=== PATIENT | male | born 1995 | race Caucasian/White ===

== ENCOUNTER 2021-07-18 10:13 | Emergency (ER) | payer BC, SELFPAY ==
[2021-07-18 11:46] VITALS: BP 161/101; PULSE 70; RESP 16; TEMP 36.9; O2SAT 99; BMI 28.7
[2021-07-18 11:52] VITALS: BP 161/101; PULSE 70; RESP 18; TEMP 36.9
--- NOTE | 2021-07-18 12:05 | HMH.EDUTC ---
[facility] [place] Clinical Impression: Upper respiratory infection Qualifiers: URI type: unspecified viral URI Qualified Code(s): J06.9 - Acute upper respiratory infection, unspecified Disposition: Home, Self-Care Condition on Discharge: Good Instructions: Preventing the Spread of Coronavirus Discharge Instructions Additional Instructions: You have been tested for COVID19. Please isolate yourself as if you are positive until test results received. Prescriptions: Albuterol Sulfate [Albuterol Sulfate Hfa] 2 puffs IH Q4HP PRN 30 Days #1 each PRN Reason: Shortness Of Breath Transmission Status: Pending to [facility] predniSONE [Prednisone 20mg Tab] 20 mg PO BID 5 Days #10 tab Transmission Status: Pending to [facility] Promethazine/Dextromethorphan [Promethazine-Dm Syrup] 5 ml PO Q4HP PRN 10 Days #180 ml MDD 30ML/DAY PRN Reason: Cough Transmission Status: Pending to [facility] Referrals: Swathi Gallardo [Primary Care Provider] - Forms: Work/School Release Time of Disposition: 12:10 Medical Decision Making - Sandeep Inquiry Pt receiving controlled substance: No Vital Signs: 07/18/21 11:46 07/18/21 11:52 Temperature 98.4 F 98.4 F Temperature Source Oral Pulse Rate 70 Pulse Rate [Left] 70 Respiratory Rate 16 18 Blood Pressure 161/101 H Blood Pressure [Right Arm] 161/101 H Blood Pressure Mean [Right Arm] 121 02 Sat by Pulse Oximetry 99 [facility] [place] - General Stated complaint: covid test Time Seen by Provider: 07/18/21 12:05 Mode of Arrival: Ambulatory Source of Information: Patient Limitations: No Limitations Description of Symptoms (Recalled from Triage Doc. by RN): pt c/o fever, loss of taste, cough and body aches. HEENT Symptoms (Recalled from RN notes): Yes (loss of taste) Resp Symptoms (Recalled from RN notes): Yes (cough) Skin Symptoms (Recalled from RN notes): No MS Symptoms (Recalled from RN notes): No Functional Status (Recalled from RN notes): fever and body aches - History of Present Illness Provider Complaint: Fever, body aches, chills, loss of taste and smell for about a week. Headache, sore throat, cough, diarrhea. Onset (ago): week(s) (1) Location: head, chest Relieving factors: none Exacerbating factors: none Associated symptoms: cough, fever/chills, headaches, loss of appetite Treatments prior to arrival: NSAID - Related Data Previous Rx's Medication Instructions Recorded Albuterol Sulfate [Albuterol 2 puffs IH Q4HP PRN 30 Days #1 each 07/18/21 Sulfate Hfa] Promethazine/Dextromethorphan 5 ml PO Q4HP PRN 10 Days #180 ml 07/18/21 [Promethazine-Dm Syrup] MDD 30ML/DAY predniSONE [Prednisone 20mg 20 mg PO BID 5 Days #10 tab 07/18/21 Tab] Allergies Allergy/AdvReac Type Severity Reaction Status Date / Time vancomycin Allergy Verified 07/18/21 11:51 - Worker's Comp Is this a Worker's Comp case?: No H History - Hepatitis A Screen Drug use history?: No High risk sexual behaviors?: No History of sexually transmitted infection?: No Currently employed?: No Childcare worker?: No Do you have indoor plumbing?: Yes Do you have electricity?: Yes Attestation statement:: This patient has been screened for Hepatitis A risk factors. I have reviewed the patient's past medical history: Yes ROS Obtained: Yes All systems reviewed & no additional complaints - Constitutional Constitutional: Reports body ache, Reports chills, Reports fatigue, Reports fever(s), Reports malaise - ENT Ears, Nose, Mouth, and Throat: Reports otalgia, Reports headache(s), Reports nasal congestion, Reports sore throat - Respiratory Respiratory: Reports cough - Gastrointestinal Gastrointestingal: Reports: loose stools Physical Exam - General General appearance: alert, in no apparent distress - Head Head exam: normocephalic - Eye Eye exam: Present: PERRL - ENT ENT exam: Present: normal oropharynx, TM's normal bilaterally - Chest
== END 2021-07-18 12:33 | disposition home or self-care (01) ==
PROVIDERS: Emergency Provider Physician Assistant; PCP Nurse Practitioner Family
DX: U07.1 COVID-19 (principal); J06.9 Acute upper respiratory infection, unspecified
CPT/HCPCS: 99202; G0463; U0003

== ENCOUNTER 2022-08-10 02:32 | Emergency (ER) | payer BC, SELFPAY ==
[2022-08-10] VITALS (8 sets, daily range): BP systolic 98–152; BP diastolic 48–99; PULSE 47–72; RESP 16; TEMP 36.4–36.7; O2SAT 97–99; BMI 32.1
[2022-08-10 03:00] LABS: Microscopic, Urine URINE MICROSCOPIC (MICROSCOPIC)
[2022-08-10 03:03] LABS: Basophils # 0.1 K/mm3 (0-0.2); Basophils % 0.8 % (0.1-2.0); Eosinophils # 0.4 K/mm3 (0.0-0.4); Hematocrit 48.8 % (42.0-52.0); Hemoglobin 15.8 g/dL (14.1-18.0); Lymphocytes # 4.2 K/mm3 (0.7-4.5); Lymphocytes % 36.5 % (10-50); Mean Corpuscular HGB Conc 32.4 g/dL (31.8-35.4); Mean Corpuscular Hemoglobin 30.9 pg (27.0-31.2); Mean Corpuscular Volume 95.6 fl (80-94); Mean Platelet Volume 8.5 fl (7.4-10.4); Monocytes # 0.5 K/mm3 (0.1-1.0); Monocytes % 4.5 % (1.7-9.3); Neutrophils # 6.4 K/mm3 (1.8-7.8); Neutrophils % 55.1 % (37.0-80.0); Platelet Count 255 K/mm3 (142-424); Red Blood Count 5.11 M/mm3 (4.60-6.20); Red Cell Distribution Width 13.1 % (11.5-17.5); White Blood Count 11.6 K/mm3 (4.8-10.8)
[2022-08-10 03:04] LABS: Appearance,Urine CLEAR (Clear); Bilirubin,Urine Negative (Negative); Blood, Urine TRACE-I (Negative); Color,Urine YELLOW (Yellow); Glucose,Urine (UA) Negative (Negative); Ketones,Urine Negative (Negative); Leukocyte Esterase,Urine Negative (Negative); Nitrate,Urine Negative (Negative); PH,Urine 6.5 (5.0-8.5); Protein,Urine Negative (Negative); Urobilinogen,Urine 0.2 EU/dl (0.2)
[2022-08-10 03:06] LABS: Chloride 102 mmol/L (98-107); Potassium 4.1 mmoL/L (3.5-5.1); Sodium 141 mmol/L (136-145)
[2022-08-10 03:08] LABS: Blood Urea Nitrogen 13 mg/dl (9-20); Creatinine Clearance Estimated 226 mL/min (50-200); Estimated Glomerular Filt Rate 118 ml/min (>60); GFR (African American) 143 ML/MIN (>60)
[2022-08-10 03:09] LABS: Alanine Aminotransferase 34 U/L (12-78); Albumin Level 4.4 g/dl (3.5-5.0); Albumin/Globulin Ratio 1.6 (1.1-1.8); Alkaline Phosphatase 86 U/L (38-126); Anion Gap 17.1 mEq/L (5-15); Aspartate Amino Transferase 39 U/L (17-59); Calcium 9.3 mg/dl (8.4-10.2); Carbon Dioxide 26 mmol/L (22.0-30.0); Globulin 2.7 g/dL (1.3-3.2); Glucose 105 mg/dl (74-100); Total Protein,Serum 7.1 g/dl (6.3-8.2)
[2022-08-10 03:10] LABS: Bilirubin,Total < 0.1 mg/dl (0.2-1.3)
[2022-08-10 03:14] LABS: C-Reactive Protein 4.4 mg/L (0-4)
--- NOTE | 2022-08-10 03:14 | HMH.EDHA ---
Discharge Plan Disposition Chief Complaint: Headache Prescriptions Prescriptions: No Action No Known Home Medications Referrals Follow up/Referrals: Swathi Gallardo [Primary Care Provider] - See instructions Clinical Impressions Clinical Impression: Headache, Sinusitis Instructions Patient Instructions: DI for Headache Discharge ED Provider: Baldev Gonsalves Headache HPI General Chief Complaint: Headache Stated Complaint: Vomiting, Headache Time Seen by Provider: 08/10/22 03:14 Mode of Arrival: Ambulatory Source of Information: Patient, Spouse and Medical Record Limitations: No Limitations Description of Symptoms (Recalled from ER Triage Doc. by RN): Pt reports having a KEITA yesterday and then at aprox 0130 he woke up with what he describes as bands around my head . He also endorses N/V with this KEITA. He denies visual disturbances. Pt denies cough, fever, abd pain, chest pain, or diarrhea. History of Present Illness HPI Narrative: pt with some allergy sx and then dev keita with vomiting w/o rash or fever and no focal neuro sx and no trauma and no tick bites Complaint: headache Onset (ago): hour(s) Onset description: gradual Location: frontal Severity: moderate Quality: different than previous headaches Context: occurred at rest Associated symptoms: nausea and vomiting Treatments prior to arrival: none Related Data Home Medications Medication Instructions Recorded Confirmed No Known Home Medications 08/10/22 08/10/22 Allergies Allergy/AdvReac Type Severity Reaction Status Date / Time vancomycin Allergy Verified 07/18/21 11:51 [facility] History Hepatitis A Screen Attestation statement:: This patient has been screened for Hepatitis A risk factors. I have reviewed the patient's past medical history: Yes Social History Smoking Status: Current every day smoker [facility] Medical History (Updated 08/10/22 @ 06:12 by Baldev Gonsalves MD) No significant past medical history Social History Smoking Status: Current every day smoker alcohol intake: never current occupational status: employed Travel in the last 8 weeks: None ROS Obtained: Yes All systems reviewed & no additional complaints except as documented Constitutional Constitutional: Denies fever(s) and Reports headache(s) Eyes Eyes: Denies change in vision ENT Ears, Nose, Mouth, and Throat: Reports as per HPI, Denies dental pain, Denies dysphagia, Denies facial pain and Reports headache(s) Cardiovascular Cardiovascular: Denies chest pain with activity and Denies dyspnea Respiratory Respiratory: Denies dyspnea Gastrointestinal Gastrointestingal: Denies dysphagia Musculoskeletal Musculoskeletal: Denies joint stiffness Integumentary/Breasts Skin/Breast: Denies rash Neurologic Neurologic: Reports headache(s) Physical Exam General General appearance: alert Head Head exam: normocephalic Eye Eye exam: Present PERRL and EOMI ENT ENT exam: Present normal oropharynx and mucous membranes moist Neck Neck exam: Present full ROM and trachea midline; Absent meningismus or lymphadenopathy Respiratory Respiratory exam: Present normal lung sounds bilaterally Cardiovascular Cardiovascular exam: Present regular rate Abdominal Exam Abdominal exam: Present soft Extremities Exam Extremities exam: Present full ROM; Absent cyanosis Neurological Exam Neurological exam: Present alert, oriented X3, CN II-XII intact and other (gcs=15) Psychiatric Psychiatric exam: Present normal affect Skin Skin exam: Absent rash Medical Decision Making Medical Records Medical records reviewed: Yes I reviewed the patient's medical records. Sandeep Inquiry Pt receiving controlled substance: No Vital Signs: 08/10/22 02:34 Temperature 97.5 F L Temperature Source Oral Pulse Rate [Right Radial] 64 Respiratory Rate 16 Blood Pressure [Right Arm] 152/99 H Blood Pressure Mean [Right Arm] 116 Blood Pressure Source [Right Arm] Automatic Cuf
--- NOTE | 2022-08-10 03:17 | CT_ITS ---
PROCEDURE INFORMATION: Exam: CT Head Without Contrast Exam date and time: 08/10/2022 3:17 AM Age: 26 years old Clinical indication: Pain; Headache; Additional info: KEITA TECHNIQUE: Imaging protocol: Computed tomography of the head without contrast. Radiation optimization: All CT scans at this facility use at least one of these dose optimization techniques: automated exposure control; mA and/or kV adjustment per patient size (includes targeted exams where dose is matched to clinical indication); or iterative reconstruction. COMPARISON: No relevant prior studies available. FINDINGS: Brain: Normal. No hemorrhage. Unremarkable white matter. No mass effect. Cerebral ventricles: No ventriculomegaly. Paranasal sinuses: Bilateral maxillary sinus polyps or mucous retention cysts. Minimal anterior ethmoid mucosal thickening. Mastoid air cells: Visualized mastoid air cells are well aerated. Bones/joints: Unremarkable. No acute fracture. Soft tissues: Unremarkable. IMPRESSION: 1. No evidence of acute intracranial hemorrhage, mass effect, or edema. 2. Maxillary sinus polyps or mucous retention cysts with minimal anterior ethmoid mucosal thickening. The findings could contribute to headache.
--- NOTE | 2022-08-10 03:17 | CT_ITS ---
PROCEDURE INFORMATION: Exam: CT Maxillofacial Without Contrast, Sinus Exam date and time: 08/10/2022 3:19 AM Age: 26 years old Clinical indication: Pain; Headache; Additional info: KEITA TECHNIQUE: Imaging protocol: CT Maxillofacial without contrast. Focus on the sinuses. Radiation optimization: All CT scans at this facility use at least one of these dose optimization techniques: automated exposure control; mA and/or kV adjustment per patient size (includes targeted exams where dose is matched to clinical indication); or iterative reconstruction. COMPARISON: CT HEAD/BRAIN WO CON 08/10/2022 3:17 AM FINDINGS: Frontal sinuses: Normal. No air-fluid levels. Ethmoid sinuses: Mild anterior ethmoid mucosal thickening. Sphenoid sinuses: Clear sphenoid and frontal sinuses. Maxillary sinuses: Bilateral maxillary sinus mucous retention cysts or polyps. Nasal cavity: Left mina bull[place]. Orbital cavities: Orbits are normal. Globes are unremarkable. Bones/joints: Unremarkable. Soft tissues: No acute air-fluid level. Bilateral maxillary ostiomeatal units are occluded by soft tissue. IMPRESSION: 1. Bilateral maxillary sinus mucous retention cysts or polyps with obstruction of the ostiomeatal units. 2. Mild anterior ethmoid sinus mucosal thickening.
[2022-08-10 03:24] LABS: Coronavirus 19, PCR Not Detected (NotDetected); Influenza A, PCR Not Detected (NotDetected); Influenza B, PCR Not Detected (NotDetected)
[2022-08-10 03:33] LABS: Bacteria,Urine Trace /lpf; RBC,Urine Occasional #/hpf (0-3)
[2022-08-10 03:57] LABS: Erythrocyte Sedimentation Rate 1 mm/hr (0-15)
[2022-08-10 05:51] LABS: T4 (Thyroxine) 11.2 ug/dl (5.53-11.0)
[2022-08-10 06:04] LABS: Thyroid Stimulating Hormone 5.37 uIU/mL (0.465-4.68)
== END 2022-08-10 07:09 | disposition home or self-care (01) ==
PROVIDERS: Emergency Provider Emergency Medicine; PCP Nurse Practitioner Family
DX: J01.90 Acute sinusitis, unspecified (principal); F17.210 Nicotine dependence, cigarettes, uncomplicated; Z20.822 Contact with and (suspected) exposure to COVID-19
CPT/HCPCS: 70450; 70486; 80053; 81001; 84436; 84443; 85025; 85651; 86140; 96361; 96374; 96375; 99284; C9803; J2405; U0003; U0005

== ENCOUNTER 2023-03-23 09:41 | Emergency (ER) | payer BC, SELFPAY ==
--- NOTE | 2023-03-23 09:42 | XR_ITS ---
FINAL REPORT CLINICAL HISTORY: FALL FINDINGS: Left knee Three views were obtained. There is no acute fracture or dislocation. The joint spaces appear normal. No joint effusion is identified. No soft tissue abnormality is identified. IMPRESSION: No acute process. Reviewed, Interpreted and Dictated by Anuj Powers MD Transcribed by Myriam Gardner Authenticated and [facility]
[2023-03-23 09:53] VITALS: BP 140/90; PULSE 70; RESP 18; TEMP 36.6; O2SAT 98; BMI 31.0
--- NOTE | 2023-03-23 10:12 | EXP.UTC ---
Discharge Plan Disposition Patient Disposition: Home, Self-Care Condition: Good Prescriptions Prescriptions: New ibuprofen [IBU] 800 mg tablet 800 mg PO TIDP PRN (Reason: Moderate Pain) Qty: 20 0RF Referrals Follow up/Referrals: Joel Barajas JR, MD [Physician] - See instructions Swathi Gallardo [Primary Care Provider] - See instructions Activity Restrictions/Add. Instructions Additional Instructions/Restrictions: *weight bearing as tolerated *RICE, Rest the extremity, Ice 15-20 minutes 3-4 times daily, Compress- wear the martha wrap as discussed as much as possible to help reduce swelling and pain, Elevate the extremity when at rest *Knee immobilizer is for support and help control swelling, use it except in the shower. Be sure that is not to tight but not to loose either *Elevate when resting? *Ibuprofen 600-800mg every 6-8 hours as needed for pain an inflammation. If need something more can take Tylenol in between doses of Ibuprofen to help Follow up with your Family Doctor or Orthopedics if pain and symptoms persist Clinical Impressions Clinical Impression: Knee sprain Qualifiers: Encounter type: initial encounter Involved ligament of knee: unspecified ligament Laterality: left Qualified Code(s): S83.92XA - Sprain of unspecified site of left knee, initial encounter Stand Alone Forms Stand Alone Forms: Work/School Release Instructions Patient Instructions: Knee Sprain, DI for Knee Sprain, How To Perform RICE (Rest, Ice, Compress, Elevate) Discharge ED Provider: Sherry Raza [facility] [place] HPI General Stated complaint: AO5/3@home, pain in Lt knee Mode of Arrival: Ambulatory Source of Information: Patient Limitations: No Limitations Time Seen by Provider: 03/23/23 10:12 Description of Symptoms (Recalled from Triage Doc. by RN): pt states his dog tripped him when stepping off the porch and he injured his L knee. HEENT Symptoms (Recalled from RN notes): No Resp Symptoms (Recalled from RN notes): No Skin Symptoms (Recalled from RN notes): No MS Symptoms (Recalled from RN notes): Yes Functional Status (Recalled from RN notes): wnl History of Present Illness Provider Complaint: Patient states that he was outside last night messing with his dogs when his dogs tripped him and he fell and twisted his left knee States that he has been having pain in his left knee ever since and hurts when he tries to walk on it denies any other injury Related Data Previous Rx's Medication Instructions Recorded ibuprofen 800 mg tablet (IBU) 800 mg PO TIDP PRN Moderate Pain 03/23/23 #20 tabs Allergies Allergy/AdvReac Type Severity Reaction Status Date / Time vancomycin Allergy Verified 03/23/23 09:58 Worker's Comp Is this a Worker's Comp case?: No [facility] Disclaimer: The information contained in this section may have been updated after the patient was seen, as this information can be updated by other users. Medical History (Updated 03/23/23 @ 11:34 by Sherry Raza APRN) No significant past medical history Social History (Updated 08/10/22 @ 06:12 by Baldev Gonsalves MD) Smoking Status: Current every day smoker alcohol intake: never current occupational status: employed Travel in the last 8 weeks: None ROS Obtained: Yes All systems reviewed & no additional complaints except as documented and Yes Systems reviewed as appropriate & no additional complaints except as documented Constitutional Constitutional: Reports system reviewed and no additional complaints, except as documented and Reports as per HPI ENT Ears, Nose, Mouth, and Throat: Reports system reviewed and no additional complaints, except as documented and Reports as per HPI Cardiovascular Cardiovascular: Reports system reviewed and no additional complaints, except as documented and Reports as per HPI Respiratory Respiratory: Reports system reviewed and no additional complaints, except as documented and Reports as per HPI Gastrointestinal Gastroi
[2023-03-23 11:42] VITALS: BP 140/90; PULSE 70; RESP 18; TEMP 36.6
== END 2023-03-23 11:53 | disposition home or self-care (01) ==
PROVIDERS: Emergency Provider Nurse Practitioner; PCP Nurse Practitioner Family
DX: S83.92XA Sprain of unspecified site of left knee, initial encounter (principal); F17.210 Nicotine dependence, cigarettes, uncomplicated; W01.0XXA Fall on same level from slipping, tripping and stumbling without subsequent striking against object, initial encounter
CPT/HCPCS: 73562; 99212; 99214; G0463